=== PATIENT | female | born 1985 | race Caucasian/White ===

== ENCOUNTER 2016-12-07 20:16 | Emergency (ER) | payer OTHER ==
[~2016-12-07] VITALS: Ht 160 cm; Wt 54.5 kg
[~2016-12-07 20:16] MED LIST: CYCL5TAB PO; NPR500T PO
[2016-12-07 20:21] VITALS: BP 143/98; PULSE 113; RESP 18; O2SAT 100
[2016-12-07 21:04] LABS: BASOPHILS % (AUTO) 0.3 % (0-3); EOSINOPHILS % (AUTO) 2.5 % (0-5); MONOCYTES % (AUTO) 8.7 % (4-12); Mean Corpuscular Hemoglobin 30.7 pg (27.0-35.0); Mean Corpuscular Volume 88.7 fL (81-100); NEUTROPHILS % (AUTO) 73.6 % (40-74); Platelet Count 283 bil/L (150-400)
[2016-12-07 21:51] LABS: APPEARANCE,URINE CLEAR (CLEAR,HAZY); COLOR,URINE YELLOW (YELLOW); OCCULT BLOOD,URINE NEGATIVE (NEGATIVE); PH,URINE 6.5 (5.0-8.0)
[2016-12-07 21:52] LABS: UROBILINOGEN,URINE NORMAL (NORMAL)
--- NOTE | 2016-12-07 22:30 | ED.REPORT ---
HPI-Abd Pain F Under 38 Date of Service Dec 07, 2016 ED Provider: Yue Godoy MD 31 y/o female with a history of a ruptured ovarian cysts presents to the ED complaining of intermittent RLQ abdominal pain, onset two days ago. She reports at onset an episode of severe pain that lasted for several hours. She was unable to move due to the severity of her pain. Since that time she has experienced intermittent pain, nausea, chills, dizziness and increased in urinary frequency. The dizziness is constant. She denies dysuria, vomiting, diarrhea, constipation, fever, change in appetite, vaginal discharge, abnormal vaginal bleeding or possibility of . Patient states that her current symptoms feel similar to when she previously had a ruptured ovarian cyst. Nursing Notes Stated Complaint: ABD PAIN,DIZZY,POSS OVARIAN CYST Chief Complaint: Female Abdominal Pain Nursing Notes Reviewed: Yes Allergies: Coded Allergies: No Known Allergies (Verified , 12/07/16) Scheduled PRN Cyclobenzaprine (Cyclobenzaprine) 5 Mg Tablet 5 MG PO TID PRN PRN Spasm Hydrocodone-Acetaminophen 5-325 mg (Hydrocodone-Acetaminophen 5-325 mg) 1 Each Tablet 1 TABLET PO Q4H PRN PRN For Pain Naproxen (Naproxen) 500 Mg Tab 500 MG PO BID PRN PRN For Pain General Time Seen by MD: 22:30 Chief Complaint Abdominal pain Hx Obtained From: Patient Arrived By: Walk-in Sudden in Onset?: Yes Onset Occurred: 2 days ago Symptom Duration: Since onset Progression since Onset: Constant Location: : RLQ Quality: Painful Severity: Current: Moderate Severity: Maximum: Moderate Recent Healthcare: No recent doctor visit, No recent hospitalization Similar Sx Previous: Yes Past Medical History Past Medical History ovarian cysts Past Surgical History denies Smoking History Unknown if Ever Smoker Social History Alcohol Use: "Social" Other Social History: Good social support, Local resident Ambulatory Status Independent Review of Systems No change in appetite. Constitutional: Reports: Chills, Denies: Fever GI: Reports: Abdominal pain, Nausea, Denies: Constipation, Diarrhea, Vomiting Female: Reports: Urinary frequency, Denies: Dysuria, , Vaginal bleeding - abnl, Vaginal discharge Complete sys rev & neg: except as marked. Neurologic: Reports: Dizziness Physical Exam Initial Vital Signs Vital Signs (First) Date Time Temp Pulse Resp B/P Pulse Ox O2 Delivery O2 Flow Rate FiO2 12/07/16 20:21 36.0 113 18 143/98 100 Room Air Initial VS: Reviewed, Vital signs abnormal Head / Eyes: Atraumatic, Normocephalic, PERRL ENT: Mucous membranes moist, Conjunctiva normal, No scleral icterus Neck: Supple, Non-tender, Full range of motion Skin: Warm, Dry, No cyanosis Neurologic: Alert, Oriented, Nonfocal Psychiatric: Mood/affect normal, Behavior normal, Normal thought content General/Constitutional: Awake, Alert, Cooperative, Not toxic appearing Abdomen: Soft, No guarding, No rebound, No palpable mass, No pulsatile mass Tenderness/Guarding/Rebound: Positive: Tender RLQ..., Tender suprapubic Negative psoas and Obturator sign. Back: Atraumatic, No CVA tenderness Lower Extremity / Pelvis / MS: Atraumatic, No edema Interpretation & Diagnostics Lab Results Interpretation Result Diagram: 12/07/16204912/07/162049 Test 12/07/16 20:50 12/07/16 21:30 White Blood Count 11.1th/mm3 (3.8-10.1) Red Blood Count 4.60mil/mm3 (3.90-5.20) Hemoglobin 14.1g/dL (12.0-15.6) Hematocrit 40.8% (35.0-46.0) Mean Corpuscular Volume 88.7fL (81-100) Mean Corpuscular Hemoglobin 30.7pg (27.0-35.0) Mean Corpuscular Hemoglobin Concent 34.6% (32.0-37.0) Red Cell Distribution Width 12.3% (12.3-15.4) Platelet Count 283bil/L (150-400) Neutrophils (%) (Auto) 73.6% (40-74) Lymphocytes (%) (Auto) 14.7% (14-46) Monocytes (%) (Auto) 8.7% (4-12) Eosinophils (%) (Auto) 2.5% (0-5) Basophils (%) (Auto) 0.3% (0-3) Sodium Level 138mEq/L (134-144) Potassium Level 3.9mEq/L (3.5-5.2) Chloride Level 100mEq/L (97-108) Carbon Dioxide Level 23mmol/L (18-29) Blood Urea Nitrogen 8mg/dL (6-20) Creatinine 0.60mg/dL (0.57-1.00) Estimat Glomerular Filtration Rate 165mL/min (>59) Glucose Level 89mg/dL (60-99) Calcium Level 9.6mg/dL (8.5-10.1) Magnesium Level 2.0mg/dL (1.6-2.6) Total Bilirubin 0.4mg/dL (0.0-1.2) Aspartate Amino Transf (AST/SGOT) 17U/L (0-50) Alanine Aminotransferase (ALT/SGPT) 7U/L (0-32) Alkaline Phosphatase 42U/L (25-150) Total Protein 8.3g/dL (6.4-8.4) Albumin 4.9g/dL (3.4-5.0) Lipase 23U/L (13-60) Hold Sweet Top Tube Received (Received) Urine Color Yellow (YELLOW) Urine Appearance Clear (CLEAR,HAZY) Urine pH 6.5 (5.0-8.0) Urine Specific [place] 1.010 (1.003-1.035) Urine Protein Negativemg/dL (NEG,TRACE) Urine Glucose (UA) Negativemg/dL (NEGATIVE) Urine Ketones Negativemg/dL (NEGATIVE) Urine Occult Blood Negative (NEGATIVE) Urine Nitrite Negative (NEGATIVE) Urine Bilirubin Negative (NEGATIVE) Urine Urobilinogen Normalmg/dL (NORMAL) Urine Leukocyte Esterase Trace (NEGATIVE) Urine RBC 0-2/hpf (0-2) Urine WBC 0-5/hpf (0-5) Urine Epithelial Cells Few/hpf (NONE-MOD) Urine Crystals None seen (NONE SEEN) Urine Bacteria Few/hpf (NONE-FEW) Urine Hyaline Casts None/lpf (NONE) Urine Granular Casts None seen (NONE SEEN) Urine Waxy Casts None seen (NONE SEEN) Urine Red Blood Cell Casts None seen (NONE SEEN) Urine White Blood Cell Casts None seen (NONE SEEN) Urine Mucus None seen (None Seen) Urine Trichomonas None seen (NONE SEEN) Urine Yeast None (NONE SEEN) Urinalysis Comment None Urine Culture Reflexed Indicated Re-Eval/Medical Decision Med Decision/Clinical Course The patient presented with sudden pain from a couple days ago and is not fully resolved. On exam she has lower abdominal discomfort but no rebound or guarding. The patient's CBC is normal. She is slightly tachycardic and had orthostatics done which did show a mild increase in her tachycardia. I discussed possible IV hydration versus oral hydration at home and the patient chose to go home. Given the symptoms have been over 2 days with a normal hemoglobin, she has not had much bleeding, she may have had some which caused her tachycardia. There is no obvious source of infection such as urinary tract infection or appendicitis. There is no sign of ovarian torsion and she does not give any history of vaginal discharge. Source of Hx: Old records Re-Evaluation/Progress : Time of Eval: 23:30 Re-Evaluation/Progress Note: Pt rechecked. Discussed lab results and diagnosis. Informed the pt of the plan to discharge. Pt understands and agrees with plan. F/U instructions and RTER warning given. All questions addressed. Counseled Regarding: Diagnosis, Lab results, Need for follow-up, When/why to return to ED Discharge & Departure Primary Impression: Abdominal pain Abdominal location: right lower quadrant Qualified Code: R10.31 - Right lower quadrant pain Additional Impression: Dizziness Disposition: Home Discharge Condition All VS Reviewed: Yes Condition: Stable Patient Instructions: Ovarian Cyst (ED) Additional Instructions: It is likely that you had a ruptured ovarian cyst. Your blood count was normal. Given your fast heart rate, drink Gatorade and increase your water intake for the next couple of days. Recheck your pulse tonight and tomorrow. If it is high, return to the emergency department. Return to the emergency department in case of fever, increased weakness or any other new or concerning symptoms. Follow-up with your doctor next week. Referrals: Maryellen Jiang MD (PCP) Scribe Attestation Portions of this note were transcribed by Champ Portillo and Mariella Younger I, personally performed the history, physical exam and medical decision-making;I reviewed and confirmed the accuracy of the information in the transcribed note. Signed by Champ Portillo and Estefany Nieto. 12/08/16 01:25 copies to: Maryellen Jiang MD, Jena M MD Dec 07, 2016 22:30 Champ Portillo Dec 07, 2016 22:51 Mariella Younger Dec 07, 2016 23:27
[2016-12-07 23:05] VITALS: BP 123/90; PULSE 98; RESP 14; O2SAT 99
[2016-12-07 23:06] VITALS: BP_SYST 126; BP_SYST 136; BP_DIAS 91; BP_DIAS 92; PULSE 100; PULSE 110; RESP 12; O2SAT 100
[2016-12-07] MEDS ORDERED: HYDR-4003 PO (23:20)
[2016-12-07] MEDS ORDERED: HYDROcodone-APAP 5-325 mg Tablet PO ONE (23:20)
[2016-12-07 23:52] VITALS: BP 126/92; PULSE 98; RESP 12; O2SAT 99
== END 2016-12-07 23:53 | disposition home or self-care (01) ==
LOC: SED 20:16
DX: R10.31 Right lower quadrant pain (principal); R42 Dizziness and giddiness